=== PATIENT | female | born 1995 | race African-American/Black ===

== ENCOUNTER 2020-05-11 20:19 | Inpatient (IN) | payer SELFPAY ==
[~2020-05-11] VITALS: Ht 160 cm; Wt 65.8 kg
[2020-05-11] MEDS ORDERED: DEXT 5%/LACTATED RINGERS 1,000 ML IV SCH (20:47)
[2020-05-11] MEDS ORDERED: RHO(D) IMMUNE GLOBULIN 300 MCG/SYR IM ONE (21:00)
[2020-05-11 21:14] LABS: BASOPHILS % 0.3 % (0.0-2.0); EOSINOPHILS % 0.3 % (0.0-5.0); HEMATOCRIT. 38.3 % (36.0-48.0); HEMOGLOBIN. 12.7 g/dL (12.0-16.0); LYMPHOCYTES % 26.7 % (20.0-50.0); MEAN CORPUSCULAR HEMOGLOBIN 28.8 pg (28.0-32.0); MEAN CORPUSCULAR VOLUME 86.9 fL (81.0-99.0); NEUTROPHILS % 65.7 % (40.0-76.0); PLATELET 182 x1000/uL (130-400); RED CELL DISTRIBUTION WIDTH 13.9 % (11.6-14.6)
[2020-05-11 21:16] LABS: COLOR URINE YELLOW (YELLOW); KETONES URINE NEGATIVE (NEGATIVE); LEUKOCYTE ESTERASE URINE TRACE (NEGATIVE); NITRITE URINE NEGATIVE (NEGATIVE); OCCULT BLOOD URINE 2+ (NEGATIVE); PH URINE 7.5 (4.5-8.0); PROTEIN URINE NEGATIVE (NEGATIVE); SPECIFIC GRAVITY URINE 1.014 (1.005-1.030)
[2020-05-11 21:20] LABS: CHLORIDE 110 mEq/L (98-107)
[2020-05-11 21:20] LABS: CLARITY URINE SL HAZY (CLEAR)
[2020-05-11 21:22] LABS: INR 0.9; PARTIAL THROMBOPLASTIN TIME 29.1 sec (23.4-31.0); PROTHROMBIN TIME 9.3 sec (9.6-11.0)
[2020-05-11] MEDS ORDERED: DEXT 5%/LR + PITOCIN 20UNITS/L 1,000 ML IV ONE (21:43)
[2020-05-11] MEDS ORDERED: DEXT 5%/LR + PITOCIN 20UNITS/L 1,000 ML IV SCH (21:43)
[2020-05-11] MEDS ORDERED: IBUPROFEN 400MG TABLET PO PRN (21:45)
[2020-05-11] MEDS ORDERED: DIPHENHYDRAMINE 25MG CAPSULE PO PRN (21:45)
[2020-05-11] MEDS ORDERED: RHO(D) IMMUNE GLOBULIN 300 MCG/SYR IM PRN (21:45)
[2020-05-11] MEDS ORDERED: LANOLIN OINT 7GM TUBE TOP PRN (21:45)
[2020-05-11] MEDS ORDERED: BISACODYL 10MG SUPP PR PRN (21:45)
[2020-05-11] MEDS ORDERED: GLYCERIN/WITCH HAZEL LEAF MEDICATED PAD TOP PRN (21:45)
[2020-05-11] MEDS ORDERED: HEMORRHOIDAL SUPP PR PRN (21:45)
[2020-05-11 21:53] LABS: *BARBITURATES SCREEN URINE NEGATIVE (NEGATIVE); CANNABINOID URINE SCREEN NEGATIVE (NEGATIVE); OPIATES URINE SCREEN NEGATIVE (NEGATIVE); PHENCYCLIDINE URINE SCREEN NEGATIVE (NEGATIVE)
[2020-05-11 21:54] LABS: *AMPHETAMINES SCREEN URINE NEGATIVE (NEGATIVE); *BENZODIAZEPINES SCREEN URINE NEGATIVE (NEGATIVE); *COCAINE SCREEN URINE NEGATIVE (NEGATIVE); METHADONE URINE SCREEN NEGATIVE (NEGATIVE)
[2020-05-11] MEDS ORDERED: CLINDAMYCIN 900 MG PREMIX 50 ML IV SCH (22:00)
[2020-05-11 23:35] VITALS: BP 119/74
[2020-05-11] MEDS: ACETAMINOPHEN WITH CODEINE 300/30MG TABLET PO PRN (23:56)
[2020-05-12] VITALS: BP 114/66
[2020-05-12 01:45] LABS: HEPATITIS B SURFACE ANTIGEN NEGATIVE
[2020-05-12 04:00] VITALS: BP 120/69
[2020-05-12 05:58] LABS: BASOPHILS % 0.2 % (0.0-2.0); EOSINOPHILS % 0.2 % (0.0-5.0); HEMATOCRIT. 33.4 % (36.0-48.0); LYMPHOCYTES % 12.6 % (20.0-50.0); MEAN CORPUSCULAR HEMOGLOBIN 28.7 pg (28.0-32.0); MEAN CORPUSCULAR VOLUME 86.9 fL (81.0-99.0); MEAN PLATELET VOLUME 8.9 fl (7.4-10.4); MONOCYTES % 6.6 % (2.0-8.0); NEUTROPHILS % 80.4 % (40.0-76.0); PLATELET 155 x1000/uL (130-400); RED BLOOD CELL COUNT 3.84 mill/uL (4.2-5.4); RED CELL DISTRIBUTION WIDTH 13.4 % (11.6-14.6)
[2020-05-12 07:15] VITALS: BP 96/53
[2020-05-12] MEDS ORDERED: FERROUS SULFATE 325MG TABLET PO SCH (07:30)
[2020-05-12] MEDS: IBUPROFEN 800MG TABLET PO PRN ×3 (07:51→21:28)
[2020-05-12] MEDS ORDERED: PRENATAL VIT/FE FUMARATE/FA TABLET PO SCH (09:00)
[2020-05-12] MEDS: ACETAMINOPHEN WITH CODEINE 300/30MG TABLET PO PRN (12:02)
[2020-05-12 14:00] VITALS: BP 100/66
[2020-05-12 16:00] VITALS: BP 108/68
[2020-05-12] MEDS ORDERED: DOCUSATE SODIUM 100MG CAPSULE PO SCH (21:00)
[2020-05-12 21:10] VITALS: BP 97/51
[2020-05-13 04:10] VITALS: BP 118/65
[2020-05-13] MEDS: ACETAMINOPHEN WITH CODEINE 300/30MG TABLET PO PRN (07:48)
[2020-05-13 08:15] VITALS: BP 107/67
== END 2020-05-13 12:20 | disposition home or self-care (01) | DRG 560 ==
LOC: OBSVTOIN 20:19 → 8 EST LDRP 20:19 → 8EST 23:27
PROVIDERS: ADMIT Specialist; ATTEND Specialist
PROC: 10E0XZZ Delivery of Products of Conception, External Approach (ICD-10-PCS; principal; 2020-05-12)
DX: O99.334 Smoking (tobacco) complicating childbirth (principal); F17.200 Nicotine dependence, unspecified, uncomplicated; Z88.5 Allergy status to narcotic agent; Z88.0 Allergy status to penicillin; Z3A.39 39 weeks gestation of pregnancy; Z37.0 Single live birth
CPT/HCPCS: 36415; 80053; 80305; 81003; 85025; 86703; 86762; 86850; 86900; 87340; 99281; J2590; J3490

== ENCOUNTER 2025-02-02 17:50 | Emergency (ER) | payer OTHER ==
[~2025-02-02] VITALS: Ht 160 cm; Wt 68.0 kg
[2025-02-02 17:54] VITALS: BP 116/75; PULSE 100; RESP 16; TEMP 36.4; O2SAT 96
[2025-02-02] MEDS: ACETAMINOPHEN 500MG TABLET PO ONE (18:39)
== END 2025-02-02 19:01 | disposition home or self-care (01) ==
LOC: ER 18:10
DX: R51.9 Headache, unspecified (principal); Z55.6 Problems related to health literacy; Z88.0 Allergy status to penicillin; V89.2XXA Person injured in unspecified motor-vehicle accident, traffic, initial encounter; Y93.89 Activity, other specified; Y92.410 Unspecified street and highway as the place of occurrence of the external cause; Y99.8 Other external cause status
CPT/HCPCS: 99283